=== PATIENT | male | born 1985 | race Caucasian/White ===

== ENCOUNTER → 2016-11-30 | Outpatient (CLI) | payer OTHER ==
--- NOTE | 2016-12-03 09:36 | SLEEPCENT ---
DATE OF PROCEDURE: 11/30/2016 ORDERING PROVIDER: Marcella Nelson NP INTERPRETATION: Nocturnal polysomnography was performed due to concern for the obstructive sleep apnea syndrome in this patient with a history of excessive somnolence and nonrestorative sleep. 8 hours and 15 minutes of data were reviewed. There were 390 minutes of sleep identified. Sleep latency was prolonged at 60 minutes. Rapid eye movement (REM) latency was prolonged at 146 minutes. Sleep architecture was fairly good. There was minimal fragmentation and two REM periods appeciated. Overall sleep efficiency was 81.3%. The patient's electrocardiogram (EKG) showed a sinus rhythm with an average heart rate of 52 beats per minute. Electroencephalogram (EEG) showed normal waveforms for awake and sleep. There were only 19 respiratory events identified of 10 seconds in duration or greater for an apnea-hypopnea index within normal range at 2.9 The events seen were exclusive to the supine posture. There was also some significant snoring noted. Arousals from respiratory events were seen 2.2 times per hour. There was some persistent limb activity with three to four trains of 30 events. Limb movement arousal index was 7.1. No oxygen desaturations were recorded. IMPRESSION: 1. Mild period limb movement disorder (G47.61). Limb movement arousal index 7.1. 2. Supine related snoring. RECOMMENDATIONS: Sleep position retraining for avoidance of the supine posture may be sufficient to address the patient's snoring. Interventions to reduce the frequency of arousals from limb activity may be helpful to improve his quality of sleep.
== END ==
LOC: M SLEEP 19:58
PROVIDERS: ATTEND Nurse Practitioner Adult Health
DX: G47.61 Periodic limb movement disorder (principal)

== ENCOUNTER 2022-12-04 17:46 | Inpatient (IN) | payer OTHER ==
[~2022-12-04] VITALS: Ht 182.9 cm; Wt 74.0 kg
[2022-12-04] MEDS ORDERED: NS 2,310 ML in IV 1 EA IV ONE (18:25)
[2022-12-04 18:59] LABS: HEMATOCRIT 40.3 % (42.0-52.0); HEMOGLOBIN 13.4 g/dl (13.5-17.5); MEAN CORPUSCULAR HEMOGLOBIN 30.3 pg (27.0-33.0); MEAN CORPUSCULAR HGB CONC 33.3 g/dl (32.0-36.5); MEAN CORPUSCULAR VOLUME 91.2 fl (80.0-96.0); PLATELET COUNT, AUTOMATED 243 10^3/uL (150-450); RED BLOOD COUNT 4.42 10^6/uL (4.30-6.10); WHITE BLOOD COUNT 11.7 10^3/uL (4.0-10.0)
[2022-12-04 19:14] LABS: INR 1.17; PROTHROMBIN TIME 14.6 SECONDS (12.5-14.5)
[2022-12-04 19:15] LABS: PARTIAL THROMBOPLASTIN TIME 32.7 SECONDS (24.8-34.2)
[2022-12-04 19:28] LABS: BLOOD UREA NITROGEN 6 MG/DL (9-23); CARBON DIOXIDE LEVEL 23 MMOL/L (20-31); CHLORIDE LEVEL 105 MMOL/L (98-107); CREATININE FOR GFR 0.78 MG/DL (0.70-1.30); GLOMERULAR FILTRATION RATE > 60.0 (>60); GLUCOSE, FASTING 101 MG/DL (60-100); MAGNESIUM LEVEL 1.7 MG/DL (1.8-2.4); POTASSIUM SERUM 4.2 MMOL/L (3.5-5.1); SODIUM LEVEL 138 MMOL/L (136-145)
[2022-12-04 19:30] LABS: THYROID STIMULATING HORMONE 1.723 uIU/ML (0.55-4.78)
[2022-12-04 19:31] LABS: FREE T4 1.11 NG/DL (0.89-1.76); RSV AMPLIFICATION NEGATIVE (NEGATIVE)
[2022-12-04 19:33] LABS: ATYPICAL LYMPH 1 % (0-5); BASOPHILS 1 % (0-1); LYMPHOCYTES 7 % (16-44); MONOCYTES 8 % (0-5); NEUTROPHILS 82 % (28-66); PLATELET ESTIMATE NORMAL (NORMAL)
[2022-12-04 19:35] LABS: D-DIMER QUANT 1.06 ug/mL (<0.5)
[2022-12-04 19:51] LABS: PROCALCITONIN 0.17 ng/ml
[2022-12-04] MEDS ORDERED: ISOVUE-370 76% 100ML VIAL As Ordered ONE (19:58)
[2022-12-04] MEDS ORDERED: MAG SULF 1GM/100ML (MAG RUN) 1 GM in IV 1 EA IV ONE (20:05)
[2022-12-04] MEDS ORDERED: MOLN200C PO (21:24)
[2022-12-04] MEDS ORDERED: HOME MED LIST COMPLETE! XX SCH (21:25)
[2022-12-04 22:09] LABS: CK-MB VALUE MASS < 1.0 NG/ML (<3.6)
[2022-12-04 22:10] LABS: CPK CREATINE PHOSPHOKINASE 23 U/L (46-171); MB/CK RELATIVE INDEX 4.34 (< OR =4)
[2022-12-04 22:46] LABS: AMPHETAMINES LEVEL URINE NEGATIVE (NEGATIVE); BARBITURATES URINE NEGATIVE (NEGATIVE); BENZODIAZEPINES URINE NEGATIVE (NEGATIVE); COCAINE METABOLITE URINE NEGATIVE (NEGATIVE); METHADONE URINE NEGATIVE (NEGATIVE); OPIATES URINE NEGATIVE (NEGATIVE)
[2022-12-04 22:47] LABS: PHENCYCLIDINE URINE NEGATIVE (NEGATIVE)
[2022-12-04 22:50] LABS: CANNABINOIDS URINE POSITIVE (NEGATIVE)
[2022-12-05] MEDS ORDERED: MAG SULF 1GM/100ML (MAG RUN) 1 GM in IV 1 EA IV ONE ×2
[2022-12-05 00:50] LABS: CHOLESTEROL RISK RATIO 7.14 (<5); HDL CHOLESTEROL 15.4 MG/DL (>40); LDL CHOLESTEROL 76.2 MG/DL (<100); NON-HDL-C 94.6 MG/DL
[2022-12-05 00:55] LABS: HEMOGLOBIN A1c 5.2 % (4.0-6.0)
[2022-12-05 06:27] LABS: HEMATOCRIT 37.9 % (42.0-52.0); HEMOGLOBIN 12.5 g/dl (13.5-17.5); MEAN CORPUSCULAR VOLUME 90.9 fl (80.0-96.0); PLATELET COUNT, AUTOMATED 246 10^3/uL (150-450); RED BLOOD COUNT 4.17 10^6/uL (4.30-6.10); WHITE BLOOD COUNT 10.9 10^3/uL (4.0-10.0)
[2022-12-05 07:12] LABS: BLOOD UREA NITROGEN 6 MG/DL (9-23); CALCIUM LEVEL 7.5 MG/DL (8.5-10.1); CARBON DIOXIDE LEVEL 22 MMOL/L (20-31); CHLORIDE LEVEL 108 MMOL/L (98-107); CREATININE FOR GFR 0.62 MG/DL (0.70-1.30); GLOMERULAR FILTRATION RATE > 60.0 (>60); GLUCOSE, FASTING 92 MG/DL (60-100); SODIUM LEVEL 138 MMOL/L (136-145)
[2022-12-05] MEDS: ENOXAPARIN 40MG/0.4ML SYRINGE (J1650 PER 10MG) SC SCH (08:50)
[2022-12-05] MEDS: ASPIRIN 81MG CHEW TABLET PO SCH (08:50)
[2022-12-05] MEDS: ATORVASTATIN 20 MG TAB PO SCH (08:50)
[2022-12-05] MEDS ORDERED: ACETAMINOPHEN TAB 650MG DOSE (2X325MG) PO PRN (09:45)
[2022-12-05] MEDS: guaiFENesin ER 600 MG TAB PO SCH ×2 (11:49→21:41)
[2022-12-05 15:01] VITALS: BP 112/65; TEMP 97.8; O2SAT 97
[2022-12-05 15:12] VITALS: BP_SYST 106; BP_SYST 112; BP_SYST 97; BP_DIAS 57; BP_DIAS 63; BP_DIAS 65
[2022-12-05 15:13] VITALS: BP 112/65; TEMP 97.8; O2SAT 97
[2022-12-05 20:21] VITALS: BP 105/69; TEMP 98.5; O2SAT 98
[2022-12-06] VITALS (15 sets, daily range): BP systolic 99–122; BP diastolic 56–66; TEMP 97–100.2; O2SAT 97–100
[2022-12-06 06:59] LABS: BASO % 0.3 % (0.0-1.0); EOS # 0.1 10^3/uL (0.0-0.5); HEMATOCRIT 37.1 % (42.0-52.0); HEMOGLOBIN 12.4 g/dl (13.5-17.5); LYMPH # 1.3 10^3/uL (1.5-5.0); LYMPH % 13.5 % (24.0-44.0); MEAN CORPUSCULAR HEMOGLOBIN 30.3 pg (27.0-33.0); MEAN CORPUSCULAR HGB CONC 33.4 g/dl (32.0-36.5); MEAN CORPUSCULAR VOLUME 90.7 fl (80.0-96.0); MONO # 0.8 10^3/uL (0.0-0.8); MONO % 7.9 % (2.0-8.0); NEUTROPHILS # 7.4 10^3/uL (1.5-8.5); NEUTROPHILS % 76.9 % (36.0-66.0); PLATELET COUNT, AUTOMATED 303 10^3/uL (150-450); RED BLOOD COUNT 4.09 10^6/uL (4.30-6.10); WHITE BLOOD COUNT 9.6 10^3/uL (4.0-10.0)
[2022-12-06 07:28] LABS: BLOOD UREA NITROGEN 6 MG/DL (9-23); CARBON DIOXIDE LEVEL 21 MMOL/L (20-31); CHLORIDE LEVEL 110 MMOL/L (98-107); CREATININE FOR GFR 0.58 MG/DL (0.70-1.30); GLOMERULAR FILTRATION RATE > 60.0 (>60); GLUCOSE, FASTING 92 MG/DL (60-100); POTASSIUM SERUM 4.3 MMOL/L (3.5-5.1); SODIUM LEVEL 138 MMOL/L (136-145)
[2022-12-06] MEDS: guaiFENesin ER 600 MG TAB PO SCH ×2 (10:00→20:08)
[2022-12-06] MEDS: ASPIRIN 81MG CHEW TABLET PO SCH (10:00)
[2022-12-06] MEDS: ATORVASTATIN 20 MG TAB PO SCH (10:00)
[2022-12-06] MEDS: ENOXAPARIN 40MG/0.4ML SYRINGE (J1650 PER 10MG) SC SCH (10:01)
[2022-12-06] MEDS ORDERED: NS 1,000 ML IV SCH (13:05)
[2022-12-06] MEDS: cefTRIAXone SOD 2 GM in D5W MINI-BAG PLUS 50 ML IV SCH (16:37)
[2022-12-07] VITALS (13 sets, daily range): BP systolic 96–124; BP diastolic 56–62; TEMP 97.6–98.7; O2SAT 96–99
[2022-12-07 06:02] LABS: BASO % 0.4 % (0.0-1.0); EOS # 0.1 10^3/uL (0.0-0.5); EOS % 1.4 % (0.0-3.0); HEMATOCRIT 36.3 % (42.0-52.0); HEMOGLOBIN 11.9 g/dl (13.5-17.5); LYMPH # 1.3 10^3/uL (1.5-5.0); MEAN CORPUSCULAR HEMOGLOBIN 30.2 pg (27.0-33.0); MEAN CORPUSCULAR HGB CONC 32.8 g/dl (32.0-36.5); MEAN CORPUSCULAR VOLUME 92.1 fl (80.0-96.0); MONO # 0.7 10^3/uL (0.0-0.8); MONO % 8.2 % (2.0-8.0); NEUTROPHILS # 6.3 10^3/uL (1.5-8.5); NEUTROPHILS % 74.5 % (36.0-66.0); PLATELET COUNT, AUTOMATED 337 10^3/uL (150-450); RED BLOOD COUNT 3.94 10^6/uL (4.30-6.10); WHITE BLOOD COUNT 8.4 10^3/uL (4.0-10.0)
[2022-12-07 06:30] LABS: BLOOD UREA NITROGEN 5 MG/DL (9-23); CALCIUM LEVEL 7.8 MG/DL (8.5-10.1); CARBON DIOXIDE LEVEL 22 MMOL/L (20-31); CHLORIDE LEVEL 110 MMOL/L (98-107); GLOMERULAR FILTRATION RATE > 60.0 (>60); GLUCOSE, FASTING 92 MG/DL (60-100); POTASSIUM SERUM 4.3 MMOL/L (3.5-5.1); SODIUM LEVEL 141 MMOL/L (136-145)
[2022-12-07] MEDS: guaiFENesin ER 600 MG TAB PO SCH ×2 (08:38→21:36)
[2022-12-07] MEDS: ENOXAPARIN 40MG/0.4ML SYRINGE (J1650 PER 10MG) SC SCH (08:38)
[2022-12-07] MEDS: cefTRIAXone SOD 2 GM in D5W MINI-BAG PLUS 50 ML IV SCH (16:49)
[2022-12-08] VITALS (19 sets, daily range): BP systolic 98–118; BP diastolic 56–74; TEMP 97.2–98.7; O2SAT 93–99
[2022-12-08 05:07] LABS: BASO % 0.5 % (0.0-1.0); EOS # 0.2 10^3/uL (0.0-0.5); EOS % 3.6 % (0.0-3.0); HEMATOCRIT 36.7 % (42.0-52.0); HEMOGLOBIN 11.8 g/dl (13.5-17.5); LYMPH # 1.4 10^3/uL (1.5-5.0); LYMPH % 23.3 % (24.0-44.0); MEAN CORPUSCULAR HEMOGLOBIN 29.7 pg (27.0-33.0); MEAN CORPUSCULAR HGB CONC 32.2 g/dl (32.0-36.5); MEAN CORPUSCULAR VOLUME 92.4 fl (80.0-96.0); MONO # 0.8 10^3/uL (0.0-0.8); MONO % 13.3 % (2.0-8.0); NEUTROPHILS # 3.6 10^3/uL (1.5-8.5); PLATELET COUNT, AUTOMATED 367 10^3/uL (150-450); RED BLOOD COUNT 3.97 10^6/uL (4.30-6.10); WHITE BLOOD COUNT 6.1 10^3/uL (4.0-10.0)
[2022-12-08 05:41] LABS: BLOOD UREA NITROGEN 6 MG/DL (9-23); CALCIUM LEVEL 8.2 MG/DL (8.5-10.1); CARBON DIOXIDE LEVEL 24 MMOL/L (20-31); CHLORIDE LEVEL 110 MMOL/L (98-107); CREATININE FOR GFR 0.59 MG/DL (0.70-1.30); GLOMERULAR FILTRATION RATE > 60.0 (>60); GLUCOSE, FASTING 91 MG/DL (60-100); POTASSIUM SERUM 4.3 MMOL/L (3.5-5.1); SODIUM LEVEL 141 MMOL/L (136-145)
[2022-12-08] MEDS: guaiFENesin ER 600 MG TAB PO SCH ×2 (10:42→20:23)
[2022-12-08] MEDS: ENOXAPARIN 40MG/0.4ML SYRINGE (J1650 PER 10MG) SC SCH (10:42)
[2022-12-08] MEDS: cefTRIAXone SOD 2 GM in D5W MINI-BAG PLUS 50 ML IV SCH (16:32)
[2022-12-09] VITALS (10 sets, daily range): BP systolic 100–107; BP diastolic 56–62; TEMP 96.8–98.1; O2SAT 95–99
[2022-12-09] MEDS ORDERED: SODIUM CHLORIDE 0.9% INJ 10 ML SYR IV SCH (06:00)
[2022-12-09 06:33] LABS: BASO # 0.1 10^3/uL (0.0-0.2); BASO % 0.7 % (0.0-1.0); EOS # 0.2 10^3/uL (0.0-0.5); EOS % 3.5 % (0.0-3.0); HEMATOCRIT 37.7 % (42.0-52.0); HEMOGLOBIN 12.1 g/dl (13.5-17.5); LYMPH # 1.6 10^3/uL (1.5-5.0); LYMPH % 23.3 % (24.0-44.0); MEAN CORPUSCULAR HEMOGLOBIN 29.8 pg (27.0-33.0); MEAN CORPUSCULAR HGB CONC 32.1 g/dl (32.0-36.5); MEAN CORPUSCULAR VOLUME 92.9 fl (80.0-96.0); NEUTROPHILS % 58.1 % (36.0-66.0); PLATELET COUNT, AUTOMATED 451 10^3/uL (150-450); RED BLOOD COUNT 4.06 10^6/uL (4.30-6.10); WHITE BLOOD COUNT 6.9 10^3/uL (4.0-10.0)
[2022-12-09 06:57] LABS: BLOOD UREA NITROGEN 8 MG/DL (9-23); CALCIUM LEVEL 8.6 MG/DL (8.5-10.1); CARBON DIOXIDE LEVEL 24 MMOL/L (20-31); CHLORIDE LEVEL 110 MMOL/L (98-107); CREATININE FOR GFR 0.59 MG/DL (0.70-1.30); GLOMERULAR FILTRATION RATE > 60.0 (>60); GLUCOSE, FASTING 101 MG/DL (60-100); POTASSIUM SERUM 4.4 MMOL/L (3.5-5.1); SODIUM LEVEL 142 MMOL/L (136-145)
[2022-12-09] MEDS ORDERED: LIDOCAINE 1% MDV 20ML VIAL As Ordered ONE (08:41)
[2022-12-09] MEDS: guaiFENesin ER 600 MG TAB PO SCH (08:45)
[2022-12-09] MEDS: ENOXAPARIN 40MG/0.4ML SYRINGE (J1650 PER 10MG) SC SCH (08:46)
[2022-12-09] MEDS ORDERED: SODIUM CHLORIDE 0.9% INJ 10 ML SYR IV PRN (11:30)
[2022-12-09] MEDS: cefTRIAXone SOD 2 GM in D5W MINI-BAG PLUS 50 ML IV SCH (14:24)
== END 2022-12-09 15:38 | disposition home or self-care (01) | DRG 867 ==
LOC: M ED 17:46 → M ED INP 23:34 → ENRESERV 12-05 12:52 → M PCU 12-05 15:00
PROVIDERS: ADMIT Internal Medicine; ATTEND Internal Medicine
PROC: 02HV33Z Insertion of Infusion Device into Superior Vena Cava, Percutaneous Approach (ICD-10-PCS; principal; 2022-12-09 10:00)
DX: A69.20 Lyme disease, unspecified (principal); U07.1 COVID-19; I44.1 Atrioventricular block, second degree; E83.42 Hypomagnesemia; D72.829 Elevated white blood cell count, unspecified

== ENCOUNTER → 2022-12-10 | Outpatient (CLI) | payer OTHER ==
[~2022-12-10] MED LIST: MOLN200C PO
== END ==
LOC: M EKG 12:43
PROVIDERS: ATTEND Internal Medicine
DX: I44.1 Atrioventricular block, second degree (principal)

== ENCOUNTER → 2022-12-26 | Outpatient (CLI) | payer OTHER | LOC: M WHC 09:50 | PROVIDERS: ATTEND Internal Medicine Hematology | DX: I82.622 Acute embolism and thrombosis of deep veins of left upper extremity (principal); A69.20 Lyme disease, unspecified; U07.1 COVID-19; I44.1 Atrioventricular block, second degree | CPT/HCPCS: 93971; G0463 ==

== ENCOUNTER → 2022-12-27 | Outpatient (CLI) | payer OTHER ==
[2022-12-27 15:02] LABS: BASO % 0.3 % (0.0-1.0); EOS # 0.4 10^3/uL (0.0-0.5); EOS % 3.9 % (0.0-3.0); HEMATOCRIT 41.5 % (42.0-52.0); LYMPH # 1.5 10^3/uL (1.5-5.0); MEAN CORPUSCULAR HEMOGLOBIN 29.7 pg (27.0-33.0); MEAN CORPUSCULAR HGB CONC 31.3 g/dl (32.0-36.5); MEAN CORPUSCULAR VOLUME 94.7 fl (80.0-96.0); MONO # 1.3 10^3/uL (0.0-0.8); MONO % 13.5 % (2.0-8.0); NEUTROPHILS # 6.1 10^3/uL (1.5-8.5); NEUTROPHILS % 65.9 % (36.0-66.0); PLATELET COUNT, AUTOMATED 264 10^3/uL (150-450); RED BLOOD COUNT 4.38 10^6/uL (4.30-6.10); WHITE BLOOD COUNT 9.2 10^3/uL (4.0-10.0)
[2022-12-27 15:29] LABS: ALBUMIN 3.1 G/DL (3.2-5.2); ALKALINE PHOSPHATASE 79 U/L (46-116); ALT/SGPT 9 U/L (7.0-40); AST/SGOT 10 U/L (<34); BILIRUBIN,TOTAL 0.8 MG/DL (0.3-1.2); BLOOD UREA NITROGEN 6 MG/DL (9-23); CALCIUM LEVEL 8.6 MG/DL (8.5-10.1); CARBON DIOXIDE LEVEL 28 MMOL/L (20-31); CHLORIDE LEVEL 101 MMOL/L (98-107); CREATININE FOR GFR 0.63 MG/DL (0.70-1.30); GLOMERULAR FILTRATION RATE > 60.0 (>60); GLUCOSE, FASTING 79 MG/DL (60-100); POTASSIUM SERUM 4.3 MMOL/L (3.5-5.1); SODIUM LEVEL 137 MMOL/L (136-145); TOTAL PROTEIN 7.1 G/DL (5.7-8.2)
[2022-12-27 16:22] LABS: ERYTHROCYTE SEDIMENTATION RATE > 130 mm/hr (0-15)
== END ==
LOC: M PLALAB 11:25
PROVIDERS: ATTEND Internal Medicine Infectious Disease
DX: A69.29 Other conditions associated with Lyme disease (principal)

== ENCOUNTER → 2023-02-07 | Outpatient (CLI) | payer OTHER | LOC: M PLALAB 08:43 | PROVIDERS: ATTEND Internal Medicine Hematology | DX: I82.A22 Chronic embolism and thrombosis of left axillary vein (principal) | CPT/HCPCS: 36415; 85379; G0463 ==